=== PATIENT | female | born 1990 | race Hispanic/Latino ===

== ENCOUNTER 2021-03-19 13:37 | Emergency (ER) | payer MEDICAID, SELFPAY ==
[2021-03-19] MEDS ORDERED: Acetaminophen 500 MG TAB ONE (13:56)
[2021-03-19] MEDS ORDERED: Ventolin HFA Inhaler 60 PUFF INHALER ONE (13:56)
[2021-03-19] MEDS ORDERED: Sodium Chloride 0.9% 1,000 ML ONE (13:58)
[2021-03-19 14:27] LABS: #Lymphocytes 0.7 thou/uL (1.20-3.40); #Monocytes 0.3 thou/uL (0.11-0.59); #Neutrophils 3.7 thou/uL (1.40-6.50); %Basophils 0.3 % (0.0-1.0); %Eosinophils 0.4 % (0.0-10.0); %Lymphocytes 14.7 % (21.0-51.0); %Monocytes 5.6 % (0.0-10.0); %Neutrophils 79.1 % (42.0-75.0); Hemoglobin 11.4 g/dL (12.0-16.0); Mean Corpuscular HGB CONC 32.4 g/dL (32.0-36.0); Mean Corpuscular Hemoglobin 26.8 pg (27.0-31.0); Mean Corpuscular Volume 82.9 fL (78.0-98.0); Platelet Count 191 thou/uL (130-400); RBC Distribution Width 13.4 % (11.5-14.5); Red Blood Cell (RBC) Count 4.25 mill/uL (4.20-5.40); White Blood Cell (WBC) Count 4.7 thou/uL (4.8-10.8)
[2021-03-19 14:31] LABS: ALT (SGPT) 11 U/L (8-55); AST (SGOT) 22 U/L (5-34); Albumin 2.9 g/dL (3.5-5.0); Alkaline Phosphatase 243 U/L (40-110); Anion Gap 13 mmol/L (10-20); BUN (Urea Nitrogen) 5 mg/dL (7.0-18.7); Bilirubin, Total 0.7 mg/dL (0.2-1.2); Calc. Creatinine Clearance 0 mL/min (70-130); Calcium 8.7 mg/dL (7.8-10.44); Carbon Dioxide 20 mmol/L (22-29); Chloride 107 mmol/L (98-107); Globulin 3.7 g/dL (2.4-3.5); Glucose 96 mg/dL (70-105); Potassium 3.8 mmol/L (3.5-5.1); Protein, Total 6.6 g/dL (6.0-8.3); Sodium 136 mmol/L (136-145)
[2021-03-19] MEDS ORDERED: cefTRIAXone\\ROCEPHIN 1 GM VIAL ONE (14:51)
[2021-03-19] MEDS ORDERED: Sodium Chloride 0.9% 100 ML ONE (14:53)
[2021-03-19] MEDS ORDERED: Dexamethasone 4 mg/ml Vial ONE (14:56)
== END 2021-03-19 16:05 | disposition home or self-care (01) ==
LOC: NAV ERS 13:37
DX: O98.513 Other viral diseases complicating pregnancy, third trimester (principal); U07.1 COVID-19; Z3A.36 36 weeks gestation of pregnancy
CPT/HCPCS: 71045; 80053; 83605; 84484; 85025; 93005; 94760; 96365; 96375; J0696; J1100; J3490; J7050

== ENCOUNTER 2021-06-07 02:29 | Emergency (ER) | payer MEDICAID, OTHER | END 2021-06-07 04:25 | disposition home or self-care (01) | LOC: NAV ERS 02:29 | DX: R10.9 Unspecified abdominal pain (principal); R19.7 Diarrhea, unspecified | CPT/HCPCS: 96372; 99283; J0500 ==

== ENCOUNTER 2023-12-13 18:47 | Emergency (ER) | payer MEDICAID, OTHER, SELFPAY ==
[2023-12-13] MEDS ORDERED: Naproxen 500 MG TAB ONE (19:22)
== END 2023-12-13 19:32 | disposition home or self-care (01) ==
LOC: NAV ERS 18:47
DX: S93.411A Sprain of calcaneofibular ligament of right ankle, initial encounter (principal); R03.0 Elevated blood-pressure reading, without diagnosis of hypertension; X50.1XXA Overexertion from prolonged static or awkward postures, initial encounter; Y92.512 Supermarket, store or market as the place of occurrence of the external cause